=== PATIENT | male | born 1990 | race Caucasian/White ===

== ENCOUNTER 2017-01-16 15:29 | Emergency (ER) | payer SELFPAY ==
[~2017-01-16 15:29] MED LIST: AZIT250T6 PO; BENZ100C PO; PRED50TA PO; PROAIR HFA8.5 GM INH
[2017-01-16 15:51] VITALS: BP 165/105
--- NOTE | 2017-01-16 16:05 | PHYS DOC ---
Past Medical History Past Medical History: Hypertension, Kidney Stone, Other Additional Past Medical Histor: PUD Past Surgical History: Other Additional Past Surgical Histo: TM tubes Alcohol Use: None Drug Use: Marijuana Adult General Chief Complaint Chief Complaint: NOSEBLEED HPI HPI Patient is a 26 year old male who presents with left nosebleed that was controlled prior to arrival. He notes this giving him anxiety. He also notes multiple psychosocial stressors recently. He denies nasal trauma, but he states he snorted pain medication yesterday. He states he did this for generalized body aching and his anxiety. He denies rhinorrhea, nasal congestion, fever or chills, cough, dyspnea, chest pain, palpitations. He denies suicidality, homicidality, hallucinations. Review of Systems Review of Systems Constitutional: Denies fever or chills [] Eyes: Denies change in visual acuity, redness, or eye pain [] HENT: Denies nasal congestion or sore throat [] Respiratory: Denies cough or shortness of breath [] Cardiovascular: No additional information not addressed in HPI [] GI: Denies abdominal pain, nausea, vomiting, bloody stools or diarrhea [] : Denies dysuria or hematuria [] Musculoskeletal: Denies back pain or joint pain [] Integument: Denies rash or skin lesions [] Neurologic: Denies headache, focal weakness or sensory changes [] Endocrine: Denies polyuria or polydipsia [] Current Medications Current Medications Current Medications Medications (Trade) Dose Ordered Sig/Parul Start Time Stop Time Status Last Admin Dose Admin Acetaminophen (Tylenol) 500 mg 1X ONCE 01/16/17 16:15 01/16/17 16:15 DC 01/16/17 16:12 500 MG Allergies Allergies Allergies Coded Allergies Type Severity Reaction Last Updated Verified diphenhydramine Allergy Intermediate hives 06/28/15 Yes Penicillins Allergy Mild rash 06/28/15 Yes latex Allergy Mild itching 06/28/15 Yes Physical Exam Physical Exam Constitutional: Well developed, well nourished, no acute distress, non-toxic appearance. [] HENT: Normocephalic, atraumatic, bilateral external ears normal, oropharynx moist, no oral exudates, nose with area of left anterior epistaxis that is dried. [] Eyes: PERRLA, EOMI. [] Neck: Normal range of motion, supple, no stridor. [] Cardiovascular:Heart rate regular rhythm [] Lungs & Thorax: Bilateral breath sounds clear to auscultation [] Abdomen: Bowel sounds normal, soft, no tenderness. [] Skin: Warm, dry, no erythema. [] Back: Normal range of motion. [] Extremities: ROM intact, ambulatory with a steady gait. [] Neurologic: Alert and oriented X 3, normal motor function, normal sensory function, no focal deficits noted. [] Psychologic: Affect normal, judgement normal, mood normal. [] Current Patient Data Vital Signs Vital Signs Date Time Temp Pulse Resp B/P Pulse Ox O2 Delivery O2 Flow Rate FiO2 01/16/17 15:51 98.6 127 13 165/105 97 Room Air 98.6 Course & Med Decision Making Course & Med Decision Making Pertinent Labs and Imaging studies reviewed. (See chart for details) Nosebleed is controlled. He is feeling less anxious about life after I sat and spoke with him about various nonacute issues. He was given Tylenol for complaint of generalized body aching. Encouraged him to follow-up with his primary care doctor and psychiatrist. Return precautions given. He understands and agrees with plan. Dragon Disclaimer Dragon Disclaimer This electronic medical record was generated, in whole or in part, using a voice recognition dictation system. Departure Departure Impression: Primary Impression: Anterior epistaxis Disposition: 01 HOME, SELF-CARE Condition: STABLE Referrals: NO PCP (PCP) Patient Instructions: Nosebleed, [id number] Additional Instructions: Follow up with your primary care doctor. Return for any concerns. Triston GUIDO MD Jan 16, 2017 16:05
[2017-01-16] MEDS ORDERED: ACETAMINOPHEN 500 MG TABLET PO ONE (16:15)
== END 2017-01-16 16:13 | disposition home or self-care (01) ==
LOC: ER 15:29
DX: R04.0 Epistaxis (principal); F41.9 Anxiety disorder, unspecified; F12.10 Cannabis abuse, uncomplicated; I10 Essential (primary) hypertension; Z88.0 Allergy status to penicillin; Z88.8 Allergy status to other drugs, medicaments and biological substances; Z91.040 Latex allergy status
CPT/HCPCS: 99282

== ENCOUNTER 2019-02-01 16:20 | Emergency (ER) | payer OTHER ==
[~2019-02-01] VITALS: Ht 182.9 cm; Wt 108.9 kg
[~2019-02-01 16:20] MED LIST changes: +ALBU2.5V8 INH; -PROAIR HFA8.5 GM INH
[2019-02-01 17:38] VITALS: BP 135/93
[2019-02-01] MEDS ORDERED: HYDROcodone/APAP 5/325MG 1 TAB TABLET PO ONE (18:15)
[2019-02-01] MEDS ORDERED: HYDR-3164 PO (18:22)
[2019-02-01] MEDS ORDERED: TIZA4TAB8 PO (18:22)
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
== END 2019-02-01 19:35 | disposition home or self-care (01) ==
LOC: ER 16:20
DX: S16.1XXA Strain of muscle, fascia and tendon at neck level, initial encounter (principal); R07.2 Precordial pain; I10 Essential (primary) hypertension; Z96.22 Myringotomy tube(s) status; Z88.0 Allergy status to penicillin; Z88.8 Allergy status to other drugs, medicaments and biological substances; Z91.040 Latex allergy status; V43.92XA Unspecified car occupant injured in collision with other type car in traffic accident, initial encounter; Y93.89 Activity, other specified; Y92.410 Unspecified street and highway as the place of occurrence of the external cause; Y99.8 Other external cause status
CPT/HCPCS: 71046; 72125; 99284-25